=== PATIENT | male | born 1955 | race Caucasian/White ===

== ENCOUNTER 2023-10-27 16:05 | Inpatient (IN) | payer MEDICARE, MEDICAID ==
[2023-10-27] MEDS ORDERED: Sodium Chloride 0.9% 10 ML Syringe FLUSH PRN (17:02)
[2023-10-27] MEDS: Sodium Chloride 0.9% 1,000 ML IV SCH (17:32)
[2023-10-27 17:34] LABS: HEMOGLOBIN 12.1 g/dL (12.9-16.9); MEAN CORPUSCULAR HEMOGLOBIN 35.9 pg (31.6-35.5); MEAN CORPUSCULAR HGB CONC 35.6 g/dL (31.6-35.5); MEAN CORPUSCULAR VOLUME 100.9 fL (81.4-99.0); PLATELET COUNT,PLT 68 K/uL (130-375); RED BLOOD CELL COUNT 3.37 M/uL (4.14-5.76)
[2023-10-27 17:35] LABS: APPEARANCE,URINE CLEAR (CLEAR); BILIRUBIN,URINE NEGATIVE (NEGATIVE); COLOR,URINE YELLOW (YELLOW); GLUCOSE,URINE NEGATIVE (NEGATIVE); KETONES,URINE NEGATIVE (NEGATIVE); LEUKOCYTE ESTERASE,URINE NEGATIVE (NEGATIVE); NITRITE,URINE NEGATIVE (NEGATIVE); OCCULT BLOOD,URINE NEGATIVE (NEGATIVE); PH,URINE 5.5 (5.0-8.0); PROTEIN,URINE NEGATIVE (NEGATIVE); UROBILINOGEN,URINE 0.2 EU/dL (0.2-1.0)
[2023-10-27 17:45] LABS: AMORPHOUS SEDIMENT,URINE NOT SEEN; BACTERIA,URINE RARE; EPITHELIAL CELLS,URINE RARE; MUCUS,URINE RARE; RBC,URINE NOT SEEN (0-5); WBC,URINE 0-5 (0-5)
[2023-10-27 17:56] LABS: A/G RATIO 1.3 (1.2-2.2); ALANINE AMINOTRANSFERASE,ALT 32 U/L (12-78); ALBUMIN 3.4 g/dL (3.4-5.0); ALKALINE PHOSPHATASE 119 U/L (46-116); ANION GAP 8.8 mmol/L (5.0-14.0); ASPARTATE AMNIOTRANSFERASE,AST 14 U/L (15-37); BILIRUBIN TOTAL 0.7 mg/dL (0.2-1.0); BLOOD UREA NITROGEN,BUN 32 mg/dL (7-18); CALCIUM 8.7 mg/dL (8.5-10.1); CARBON DIOXIDE,CO2 25 mmol/L (21-32); CHLORIDE,CL 106 mmol/L (100-108); CREATININE 0.8 mg/dL (0.8-1.3); ESTIMATED GFR 98 mL/min (>60); GLUCOSE RANDOM 81 mg/dL (74-106); MAGNESIUM 1.5 mg/dL (1.8-2.4); POTASSIUM,K 4.1 mmol/L (3.6-5.2); SODIUM,NA 140 mmol/L (140-148)
[2023-10-27 18:01] LABS: BAND PERCENT MAN 12 % (5-11); EOSINOPHILS ABSOLUTE MAN 0.05 K/uL (0.00-0.40); EOSINOPHILS PERCENT MAN 1 % (2-4); LYMPHOCYTES PERCENT MAN 6 % (24-44); METAMYELOCYTE PERCENT MAN 2 %; MONOCYTES ABSOLUTE MAN 0.05 K/uL (0.20-0.90); MONOCYTES PERCENT MAN 1 % (2-6); SEG NEUTROPHILS PERCENT MAN 78 % (36-66)
[2023-10-27 18:10] LABS: CORONAVIRUS COVID-19 NAA NEGATIVE (NEGATIVE); INFLUENZA A NAA NEGATIVE (NEGATIVE); INFLUENZA B NAA NEGATIVE (NEGATIVE); RESPIRATORY SYNCYTIAL VIR NAA NEGATIVE (NEGATIVE)
[2023-10-27] MEDS: Magnesium Sulfate/Water 2 GM in Premix Bag 1 BAG IV ONE (18:30)
[2023-10-27] MEDS: Ondansetron 4 MG/2 ML SDV IVPUSH ONE (20:45)
[2023-10-27] MEDS: Acetaminophen 500 MG Tab PO ONE (21:18)
[2023-10-27] MEDS: cefTRIAXone 1 GM in Sodium Chloride 0.9% 50 ML IV ONE (23:15)
[2023-10-27] MEDS ORDERED: Ondansetron 4 MG/2 ML SDV IV PRN (23:39)
[2023-10-27] MEDS ORDERED: Ibuprofen 600 MG Tab PO PRN (23:39)
[2023-10-27] MEDS ORDERED: oxyCODONE 5 MG Tab PO PRN (23:39)
[2023-10-27] MEDS ORDERED: Acetaminophen 325 MG Tab PO PRN (23:39)
[2023-10-27] MEDS ORDERED: Prochlorperazine 10 MG/2 ML SDV IV PRN (23:39)
[2023-10-27] MEDS ORDERED: Prochlorperazine 10 MG Tab PO PRN (23:39)
[2023-10-27] MEDS ORDERED: Ondansetron 4 MG Tab.DIS PO PRN (23:39)
[2023-10-28] MEDS: Famotidine 20 MG Tab PO SCH (01:04)
[2023-10-28 05:21] LABS: HEMOGLOBIN 11.7 g/dL (12.9-16.9); MEAN CORPUSCULAR HEMOGLOBIN 35.7 pg (31.6-35.5); MEAN CORPUSCULAR HGB CONC 35.5 g/dL (31.6-35.5); MEAN CORPUSCULAR VOLUME 100.6 fL (81.4-99.0); PLATELET COUNT,PLT 61 K/uL (130-375); RED BLOOD CELL COUNT 3.28 M/uL (4.14-5.76); WHITE BLOOD CELL COUNT,WBC 1.9 K/uL (3.2-11.0)
[2023-10-28 05:53] LABS: ALANINE AMINOTRANSFERASE,ALT 31 U/L (12-78); ALBUMIN 3.1 g/dL (3.4-5.0); ALKALINE PHOSPHATASE 111 U/L (46-116); ASPARTATE AMNIOTRANSFERASE,AST 18 U/L (15-37); BILIRUBIN TOTAL 0.6 mg/dL (0.2-1.0); BLOOD UREA NITROGEN,BUN 26 mg/dL (7-18); CALCIUM 8.1 mg/dL (8.5-10.1); CARBON DIOXIDE,CO2 24 mmol/L (21-32); CHLORIDE,CL 106 mmol/L (100-108); CREATININE 0.8 mg/dL (0.8-1.3); EST CRCL DRUG DOSING (CG) 87.88 mL/min; ESTIMATED GFR 98 mL/min (>60); GLUCOSE RANDOM 80 mg/dL (74-106); POTASSIUM,K 4.3 mmol/L (3.6-5.2); PROTEIN TOTAL,TP 5.8 g/dL (6.4-8.2); SODIUM,NA 138 mmol/L (140-148)
[2023-10-28 05:54] LABS: A/G RATIO 1.2 (1.2-2.2); ANION GAP 12.3 mmol/L (5.0-14.0)
[2023-10-28 06:04] LABS: ANISOCYTOSIS MODERATE; BAND ABSOLUTE MAN 0.15 K/uL; BAND PERCENT MAN 8 % (5-11); EOSINOPHILS ABSOLUTE MAN 0.04 K/uL (0.00-0.40); EOSINOPHILS PERCENT MAN 2 % (2-4); LYMPHOCYTES ABSOLUTE MAN 0.19 K/uL (0.8-3.3); LYMPHOCYTES PERCENT MAN 10 % (24-44); METAMYELOCYTE ABSOLUTE MAN 0.02 K/uL; METAMYELOCYTE PERCENT MAN 1 %; MONOCYTES ABSOLUTE MAN 0.06 K/uL (0.20-0.90); MONOCYTES PERCENT MAN 3 % (2-6); NEUTROPHILS ABSOLUTE MAN 1.44 K/uL (1.0-7.6); SEG NEUTROPHILS PERCENT MAN 76 % (36-66)
[2023-10-28] MEDS: Gabapentin 300 MG Cap PO SCH (08:49)
== END 2023-10-28 14:49 | disposition home or self-care (01) | DRG 809 ==
LOC: JP.ED 16:05 → JP.MS 23:40
PROVIDERS: ADMIT Family Medicine; ATTEND Hospitalist
DX: D70.1 Agranulocytosis secondary to cancer chemotherapy (principal); C85.10 Unspecified B-cell lymphoma, unspecified site; B99.9 Unspecified infectious disease; D84.9 Immunodeficiency, unspecified; T45.1X5A Adverse effect of antineoplastic and immunosuppressive drugs, initial encounter; E83.42 Hypomagnesemia; E86.0 Dehydration; K21.9 Gastro-esophageal reflux disease without esophagitis; M06.9 Rheumatoid arthritis, unspecified; F41.9 Anxiety disorder, unspecified; F17.210 Nicotine dependence, cigarettes, uncomplicated; Z79.899 Other long term (current) drug therapy; R50.81 Fever presenting with conditions classified elsewhere; Z86.718 Personal history of other venous thrombosis and embolism; Z79.52 Long term (current) use of systemic steroids; Z87.81 Personal history of (healed) traumatic fracture; Z90.49 Acquired absence of other specified parts of digestive tract; Z98.890 Other specified postprocedural states
CPT/HCPCS: 0241U; 36415; 71046; 80053; 81001; 82947; 83605; 83735; 85025; 87040; 96361; 96365; 96366; 96367; 96375; 99238; 99285; A9270-GY; J0696; J2405; J3475; J3490; J7030

== ENCOUNTER 2023-11-09 09:16 | Emergency (ER) | payer MEDICARE, MEDICAID ==
[2023-11-09] MEDS: LORazepam 2 MG/ML SDV IVPUSH ONE ×2 (09:49→13:29)
[2023-11-09] MEDS: cefTRIAXone 2 GM in Sodium Chloride 0.9% 100 ML IV SCH (09:52)
[2023-11-09] MEDS: Lactated Ringers 1,000 ML IV SCH (09:55)
[2023-11-09 09:59] LABS: BASOPHILS PERCENT AUTO 1.3 % (0.1-1.3); EOSINOPHILS ABSOLUTE AUTO 0.04 K/uL (0.00-0.40); EOSINOPHILS PERCENT AUTO 0.3 % (0.0-5.4); HEMATOCRIT 39.9 % (38.4-49.7); HEMOGLOBIN 14.4 g/dL (12.9-16.9); IMMATURE GRAN ABSOLUTE AUTO 0.73 K/uL (0.00-0.23); IMMATURE GRAN PERCENT AUTO 4.9 % (0.0-0.7); LYMPHOCYTES ABSOLUTE AUTO 0.46 K/uL (0.8-3.3); LYMPHOCYTES PERCENT AUTO 3.1 % (11.4-47.7); MEAN CORPUSCULAR HEMOGLOBIN 35.7 pg (31.6-35.5); MEAN CORPUSCULAR HGB CONC 36.1 g/dL (31.6-35.5); MONOCYTES ABSOLUTE AUTO 1.37 K/uL (0.20-0.90); MONOCYTES PERCENT AUTO 9.2 % (3.3-12.6); NEUTROPHILS ABSOLUTE AUTO 12.09 K/uL (1.0-7.6); NEUTROPHILS PERCENT AUTO 81.2 % (40.0-78.1); PLATELET COUNT,PLT 242 K/uL (130-375); RED BLOOD CELL COUNT 4.03 M/uL (4.14-5.76); WHITE BLOOD CELL COUNT,WBC 14.9 K/uL (3.2-11.0)
[2023-11-09 10:20] LABS: A/G RATIO 0.9 (1.2-2.2); ALANINE AMINOTRANSFERASE,ALT 32 U/L (12-78); ALBUMIN 3.9 g/dL (3.4-5.0); ALKALINE PHOSPHATASE 131 U/L (46-116); ASPARTATE AMNIOTRANSFERASE,AST 18 U/L (15-37); BILIRUBIN TOTAL 0.5 mg/dL (0.2-1.0); BLOOD UREA NITROGEN,BUN 21 mg/dL (7-18); C-REACTIVE PROTEIN 2.49 mg/dL (<0.50); CALCIUM 8.9 mg/dL (8.5-10.1); CARBON DIOXIDE,CO2 17 mmol/L (21-32); CHLORIDE,CL 104 mmol/L (100-108); CREATININE 1.3 mg/dL (0.8-1.3); EST CRCL DRUG DOSING (CG) 54.08 mL/min; ESTIMATED GFR 61 mL/min (>60); GLUCOSE RANDOM 152 mg/dL (74-106); PROTEIN TOTAL,TP 8.2 g/dL (6.4-8.2); SODIUM,NA 137 mmol/L (140-148)
[2023-11-09 10:26] LABS: LACTIC ACID 2.7 mmol/L (0.4-2.0)
[2023-11-09 11:47] LABS: APPEARANCE,URINE CLEAR (CLEAR); BILIRUBIN,URINE SMALL (NEGATIVE); COLOR,URINE YELLOW (YELLOW); GLUCOSE,URINE NEGATIVE (NEGATIVE); KETONES,URINE 15 mg/dL (NEGATIVE); LEUKOCYTE ESTERASE,URINE NEGATIVE (NEGATIVE); NITRITE,URINE NEGATIVE (NEGATIVE); OCCULT BLOOD,URINE NEGATIVE (NEGATIVE); PH,URINE 5.5 (5.0-8.0); PROTEIN,URINE 100 mg/dL (NEGATIVE); UROBILINOGEN,URINE 0.2 EU/dL (0.2-1.0)
[2023-11-09 12:03] LABS: AMORPHOUS SEDIMENT,URINE FEW; BACTERIA,URINE RARE; EPITHELIAL CELLS,URINE MODERATE; MUCUS,URINE MODERATE; WBC,URINE NOT SEEN (0-5)
[2023-11-09] MEDS: Lactated Ringers 1,000 ML IV ONE (12:51)
== END 2023-11-09 15:17 | disposition home or self-care (01) ==
LOC: JP.ED 09:16
DX: E86.0 Dehydration (principal); F17.210 Nicotine dependence, cigarettes, uncomplicated; Z79.899 Other long term (current) drug therapy
CPT/HCPCS: 36415; 71045; 80053; 81001; 83605; 84145; 85025; 86140; 87040; 96361; 96365; 96375; 96376; 99284; J0696; J2060; J3490; J7120; U0002

== ENCOUNTER 2023-11-20 03:15 | Emergency (ER) | payer MEDICARE, MEDICAID ==
[2023-11-20 04:14] LABS: BASOPHILS PERCENT AUTO 0.8 % (0.1-1.3); EOSINOPHILS ABSOLUTE AUTO 0.31 K/uL (0.00-0.40); EOSINOPHILS PERCENT AUTO 2.4 % (0.0-5.4); HEMATOCRIT 40.3 % (38.4-49.7); HEMOGLOBIN 14.4 g/dL (12.9-16.9); IMMATURE GRAN ABSOLUTE AUTO 0.26 K/uL (0.00-0.23); LYMPHOCYTES PERCENT AUTO 5.5 % (11.4-47.7); MEAN CORPUSCULAR HEMOGLOBIN 35.3 pg (31.6-35.5); MEAN CORPUSCULAR HGB CONC 35.7 g/dL (31.6-35.5); MEAN CORPUSCULAR VOLUME 98.8 fL (81.4-99.0); MONOCYTES ABSOLUTE AUTO 1.46 K/uL (0.20-0.90); MONOCYTES PERCENT AUTO 11.5 % (3.3-12.6); NEUTROPHILS ABSOLUTE AUTO 9.91 K/uL (1.0-7.6); NEUTROPHILS PERCENT AUTO 77.8 % (40.0-78.1); PLATELET COUNT,PLT 237 K/uL (130-375); RED BLOOD CELL COUNT 4.08 M/uL (4.14-5.76); WHITE BLOOD CELL COUNT,WBC 12.7 K/uL (3.2-11.0)
[2023-11-20] MEDS: LORazepam 2 MG/ML SDV IVPUSH ONE (04:25)
[2023-11-20] MEDS: Ondansetron 4 MG/2 ML SDV IVPUSH ONE (04:29)
[2023-11-20] MEDS: Sodium Chloride 0.9% 1,000 ML IV SCH (04:32)
[2023-11-20 04:35] LABS: A/G RATIO 0.9 (1.2-2.2); ALANINE AMINOTRANSFERASE,ALT 21 U/L (12-78); ALBUMIN 3.7 g/dL (3.4-5.0); ALKALINE PHOSPHATASE 140 U/L (46-116); ASPARTATE AMNIOTRANSFERASE,AST 17 U/L (15-37); BILIRUBIN TOTAL 0.5 mg/dL (0.2-1.0); BLOOD UREA NITROGEN,BUN 12 mg/dL (7-18); CALCIUM 8.7 mg/dL (8.5-10.1); CARBON DIOXIDE,CO2 20 mmol/L (21-32); CHLORIDE,CL 104 mmol/L (100-108); CREATININE 1.3 mg/dL (0.8-1.3); EST CRCL DRUG DOSING (CG) 52.26 mL/min; ESTIMATED GFR 61 mL/min (>60); GLUCOSE RANDOM 132 mg/dL (74-106); POTASSIUM,K 4.6 mmol/L (3.6-5.2); PROTEIN TOTAL,TP 7.7 g/dL (6.4-8.2); SODIUM,NA 138 mmol/L (140-148)
[2023-11-20 04:39] LABS: ANION GAP 18.6 mmol/L (5.0-14.0)
[2023-11-20] MEDS: Lactated Ringers 1,000 ML IV SCH (07:15)
== END 2023-11-20 08:52 | disposition home or self-care (01) ==
LOC: JP.ED 03:15
DX: R11.2 Nausea with vomiting, unspecified (principal); F17.210 Nicotine dependence, cigarettes, uncomplicated; Z90.49 Acquired absence of other specified parts of digestive tract; Z79.899 Other long term (current) drug therapy
CPT/HCPCS: 36415; 80053; 83605; 85025; 96361; 96374; 96375; 99284; J2060; J2405; J7030; J7120

== ENCOUNTER 2023-12-20 14:14 | Emergency (ER) | payer MEDICARE, MEDICAID ==
[2023-12-20] MEDS: LORazepam 2 MG/ML SDV IVPUSH ONE ×2 (15:31→18:11)
[2023-12-20] MEDS: Lactated Ringers 1,000 ML IV ONE (15:32)
[2023-12-20 15:52] LABS: BASOPHILS ABSOLUTE AUTO 0.06 K/uL (0.00-0.10); BASOPHILS PERCENT AUTO 0.6 % (0.1-1.3); EOSINOPHILS PERCENT AUTO 2.9 % (0.0-5.4); HEMATOCRIT 38.7 % (38.4-49.7); HEMOGLOBIN 13.7 g/dL (12.9-16.9); IMMATURE GRAN ABSOLUTE AUTO 0.04 K/uL (0.00-0.23); IMMATURE GRAN PERCENT AUTO 0.4 % (0.0-0.7); LYMPHOCYTES ABSOLUTE AUTO 0.82 K/uL (0.8-3.3); MEAN CORPUSCULAR HEMOGLOBIN 34.8 pg (31.6-35.5); MEAN CORPUSCULAR HGB CONC 35.4 g/dL (31.6-35.5); MEAN CORPUSCULAR VOLUME 98.2 fL (81.4-99.0); MONOCYTES ABSOLUTE AUTO 1.21 K/uL (0.20-0.90); MONOCYTES PERCENT AUTO 11.9 % (3.3-12.6); NEUTROPHILS ABSOLUTE AUTO 7.78 K/uL (1.0-7.6); NEUTROPHILS PERCENT AUTO 76.2 % (40.0-78.1); PLATELET COUNT,PLT 196 K/uL (130-375); RED BLOOD CELL COUNT 3.94 M/uL (4.14-5.76); WHITE BLOOD CELL COUNT,WBC 10.2 K/uL (3.2-11.0)
[2023-12-20 16:13] LABS: A/G RATIO 1.1 (1.2-2.2); ALANINE AMINOTRANSFERASE,ALT 18 U/L (12-78); ALBUMIN 3.6 g/dL (3.4-5.0); ALKALINE PHOSPHATASE 97 U/L (46-116); ASPARTATE AMNIOTRANSFERASE,AST 16 U/L (15-37); BILIRUBIN TOTAL 0.6 mg/dL (0.2-1.0); BLOOD UREA NITROGEN,BUN 15 mg/dL (7-18); CALCIUM 8.6 mg/dL (8.5-10.1); CARBON DIOXIDE,CO2 23 mmol/L (21-32); CHLORIDE,CL 105 mmol/L (100-108); CREATININE 1.1 mg/dL (0.8-1.3); EST CRCL DRUG DOSING (CG) 63.91 mL/min; ESTIMATED GFR 74 mL/min (>60); GLUCOSE RANDOM 114 mg/dL (74-106); POTASSIUM,K 4.2 mmol/L (3.6-5.2); SODIUM,NA 139 mmol/L (140-148)
[2023-12-20 16:14] LABS: ANION GAP 15.2 mmol/L (5.0-14.0)
[2023-12-20] MEDS: Lactated Ringers 1,000 ML IV SCH (16:37)
== END 2023-12-20 18:52 | disposition home or self-care (01) ==
LOC: JP.ED 14:14
DX: E86.0 Dehydration (principal); F17.210 Nicotine dependence, cigarettes, uncomplicated; Z90.49 Acquired absence of other specified parts of digestive tract; Z79.899 Other long term (current) drug therapy
CPT/HCPCS: 36415; 80053; 83605; 85025; 96361; 96374; 96376; 99284; J2060; J7120

== ENCOUNTER 2024-04-30 06:54 | Day surgery (SDC) | payer MEDICARE, MEDICAID ==
[2024-04-30] MEDS ORDERED: Succinylcholine 200 MG/10 ML MDV ONE (07:02)
[2024-04-30] MEDS ORDERED: Propofol 200 MG/20 ML SDV ONE (07:02)
[2024-04-30] MEDS ORDERED: Neostigmine Methylsulfate 10 MG/10 ML MDV ONE (07:02)
[2024-04-30] MEDS ORDERED: Dexamethasone 4 MG/ML SDV ONE (07:02)
[2024-04-30] MEDS ORDERED: Ondansetron 4 MG/2 ML SDV ONE (07:02)
[2024-04-30] MEDS ORDERED: Rocuronium 50 MG/5 ML Vial ONE (07:02)
[2024-04-30] MEDS ORDERED: Glycopyrrolate 0.2 MG/ML 5 ML MDV ONE (07:02)
[2024-04-30] MEDS ORDERED: fentaNYL 250 MCG/5 ML SDV ONE (07:02)
[2024-04-30] MEDS: metroNIDAZOLE/Normal Saline 500 MG in Premix Bag 1 BAG IV ONE (07:26)
[2024-04-30] MEDS: Lactated Ringers 1,000 ML IV SCH (07:27)
[2024-04-30] MEDS: Ropivacaine 32 ML, dexAMETHasone 8 MG, EPINEPHrine 0.4 MG, Sodium Chloride 0.9% 45.6 ML NERVRT SCH (08:18)
[2024-04-30] MEDS: Bupivacaine 0.5%/EPINEPHrine 1:200,000 50 ML MDV ONE (08:20)
[2024-04-30] MEDS ORDERED: fentaNYL 100 MCG/2 ML SDV ONE (08:41)
[2024-04-30] MEDS ORDERED: Lactated Ringers 1,000 ML ONE (08:46)
[2024-04-30] MEDS: ceFAZolin 2 GM in Premix Bag 1 BAG IV ONE (08:52)
[2024-04-30] MEDS ORDERED: Sugammadex Sodium 200 MG/2 ML VIAL IV ONE (09:00)
[2024-04-30] MEDS: Acetaminophen/HYDROcodone 325-5 MG Tab PO PRN (11:49)
== END 2024-04-30 12:15 | disposition home or self-care (01) ==
LOC: JP.SDS 06:54
PROVIDERS: ATTEND Surgery
DX: K40.31 Unilateral inguinal hernia, with obstruction, without gangrene, recurrent (principal); F17.210 Nicotine dependence, cigarettes, uncomplicated
CPT/HCPCS: 00830; 49651; A9270; C1781; J0171; J0330; J0690; J1100; J1596; J1836; J2405; J2704; J2710; J2795; J3010; J3490; J7120

== ENCOUNTER 2024-09-06 14:18 | Emergency (ER) | payer MEDICARE, MEDICAID ==
[2024-09-06 15:12] LABS: BASOPHILS PERCENT AUTO 1.0 % (0.1-1.3); EOSINOPHILS PERCENT AUTO 0.5 % (0.0-5.4); IMMATURE GRAN PERCENT AUTO 1.0 % (0.0-0.7); LYMPHOCYTES ABSOLUTE AUTO 0.42 K/uL (0.8-3.3); LYMPHOCYTES PERCENT AUTO 20.4 % (11.4-47.7); MONOCYTES ABSOLUTE AUTO 0.21 K/uL (0.20-0.90); MONOCYTES PERCENT AUTO 10.2 % (3.3-12.6); NEUTROPHILS ABSOLUTE AUTO 1.38 K/uL (1.0-7.6); NEUTROPHILS PERCENT AUTO 66.9 % (40.0-78.1); PLATELET COUNT,PLT 41 K/uL (130-375); RED BLOOD CELL COUNT 4.10 M/uL (4.14-5.76); WHITE BLOOD CELL COUNT,WBC 2.1 K/uL (3.2-11.0)
[2024-09-06 15:28] LABS: BASOPHILS ABSOLUTE AUTO 0.02 K/uL (0.00-0.10); EOSINOPHILS ABSOLUTE AUTO 0.01 K/uL (0.00-0.40); IMMATURE GRAN ABSOLUTE AUTO 0.02 K/uL (0.00-0.23)
[2024-09-06 15:32] LABS: A/G RATIO 1.2 (1.2-2.2); ALANINE AMINOTRANSFERASE,ALT 52 U/L (12-78); ASPARTATE AMNIOTRANSFERASE,AST 48 U/L (15-37); BILIRUBIN TOTAL 0.8 mg/dL (0.2-1.0); BLOOD UREA NITROGEN,BUN 33 mg/dL (7-18); CARBON DIOXIDE,CO2 28 mmol/L (21-32); CHLORIDE,CL 94 mmol/L (100-108); CREATININE 1.4 mg/dL (0.8-1.3); EST CRCL DRUG DOSING (CG) 43.24 mL/min; ESTIMATED GFR 55 mL/min (>60); GLUCOSE RANDOM 117 mg/dL (74-106); POTASSIUM,K 3.4 mmol/L (3.6-5.2); PROTEIN TOTAL,TP 6.4 g/dL (6.4-8.2); SODIUM,NA 132 mmol/L (140-148)
[2024-09-09 16:47] LABS: ANAPLASMA PHAGOCYTOPHILUM PCR Detected; BABESIA MICROTI BY PCR Not Detected; EHRLICHIA CHAFFEENSIS BY PCR Not Detected; EHRLICHIA EWINGII/CANIS BY PCR Not Detected; EHRLICHIA MURIS-LIKE BY PCR Not Detected
== END 2024-09-06 17:19 | disposition home or self-care (01) ==
LOC: JP.ED 14:18
DX: I95.9 Hypotension, unspecified (principal); D72.819 Decreased white blood cell count, unspecified; R74.8 Abnormal levels of other serum enzymes; F17.200 Nicotine dependence, unspecified, uncomplicated; M19.90 Unspecified osteoarthritis, unspecified site; N18.9 Chronic kidney disease, unspecified; Z79.899 Other long term (current) drug therapy; Z90.49 Acquired absence of other specified parts of digestive tract
CPT/HCPCS: 36415; 80053; 85025; 86618; 87468; 87469; 87484; 87798; 96360; 99284; J7030